=== PATIENT | female | born 1940 | race Caucasian/White ===

== ENCOUNTER 2022-09-22 11:48 | Inpatient (IN) | payer MEDICARE ==
[2022-09-22] MEDS ORDERED: methylPREDNISolone SOD SUCCI 125 MG/2 ML VIAL IV STA (12:04)
[2022-09-22] MEDS ORDERED: IPRATROPIUM-ALBUTEROL 3 ML NEB INHALATION STA (12:04)
--- NOTE | 2022-09-22 12:07 | ED ---
General Adult HPI - General Chief complaint: Shortness of Breath Stated complaint: LEVY Time Seen by Provider: 09/22/22 11:49 Source: patient, EMS, RN notes reviewed Mode of arrival: EMS Limitations: no limitations - History of Present Illness Initial comments: Patient is a pleasant 81-year-old female presenting to the emergency department with difficulty in breathing. Patient has had cough for the past one week. Patient does have occasional yellow sputum. No fever. Patient does have history of similar symptoms previously associated with COPD. - Related Data Allergies Allergy/AdvReac Type Severity Reaction Status Date / Time No Known Allergies Allergy Verified 09/22/22 12:01 Review of Systems ROS Statement: Those systems with pertinent positive or pertinent negative responses have been documented in the HPI. ROS Other: All systems not noted in ROS Statement are negative. Constitutional: Denies: fever Eyes: Denies: eye pain ENT: Denies: ear pain Respiratory: Reports: as per HPI, cough, dyspnea Cardiovascular: Denies: chest pain Endocrine: Denies: fatigue Gastrointestinal: Denies: abdominal pain Genitourinary: Denies: dysuria Musculoskeletal: Denies: back pain Skin: Denies: rash Neurological: Denies: weakness Past Medical History Past Medical History: COPD, Hyperlipidemia, Hypertension Past Surgical History: Appendectomy, Tubal Ligation Smoking Status: Current every day smoker Past Alcohol Use History: Daily Past Drug Use History: None Reported General Exam Limitations: no limitations General appearance: alert, in no apparent distress Head exam: Present: normocephalic Eye exam: Present: normal appearance Neck exam: Present: normal inspection Respiratory exam: Present: wheezes Cardiovascular Exam: Present: regular rate, normal rhythm GI/Abdominal exam: Present: soft. Absent: tenderness Extremities exam: Present: normal inspection. Absent: pedal edema, calf tenderness Neurological exam: Present: alert Psychiatric exam: Present: normal affect, normal mood Skin exam: Present: normal color Course Vital Signs 09/22/22 09/22/22 09/22/22 11:49 11:57 12:18 Temperature 98.2 F Pulse Rate 93 92 Respiratory 24 Rate Blood Pressure 107/71 O2 Sat by Pulse 96 Oximetry 09/22/22 12:28 Temperature Pulse Rate 94 Respiratory Rate Blood Pressure O2 Sat by Pulse Oximetry - Reevaluation(s) Reevaluation #1: 09/22/22 13:37 Sepsis criteria met diagnosed at 1337. Lactic acid resulted. Blood cultures and IV antibiotics will be ordered. EKG Findings - EKG Results: EKG: interpreted by ERMD (sex rhythm with a rate of 95. Nonspecific T waves.), normal axis, normal QRS Medical Decision Making - Medical Decision Making Patient reevaluated and still feels somewhat short of breath. Pulse ox 93% on oxygen. Patient updated on results and plan. Dr. Romero has been paged for admission covering Dr. Zavala - Lab Data Result diagrams: 09/22/22 12:17 09/22/22 12:17 Lab Results 09/22/22 09/22/22 09/22/22 Range/Units 12:17 12:17 12:17 WBC 11.3 H (3.8-10.6) k/uL RBC 3.81 (3.80-5.40) m/uL Hgb 12.4 (11.4-16.0) gm/dL Hct 36.0 (34.0-46.0) % MCV 94.7 (80.0-100.0) fL MCH 32.6 (25.0-35.0) pg MCHC 34.4 (31.0-37.0) g/dL RDW 13.1 (11.5-15.5) % Plt Count 394 (150-450) k/uL MPV 8.3 Neutrophils % (Manual) 73 % Band Neuts % (Manual) 2 % Lymphocytes % (Manual) 14 % Monocytes % (Manual) 10 % Eosinophils % (Manual) 1 % Neutrophils # (Manual) 8.40 H (1.3-7.7) k/uL Lymphocytes # (Manual) 1.58 (1.0-4.8) k/uL Monocytes # (Manual) 1.13 H (0-1.0) k/uL Eosinophils # (Manual) 0.11 (0-0.7) k/uL Nucleated RBCs 0 (0-0) /100 WBC Manual Slide Review Performed Toxic Granulation Present RBC Morphology Normal Sodium 132 L (137-145) mmol/L Potassium 4.1 (3.5-5.1) mmol/L Chloride 98 (98-107) mmol/L Carbon Dioxide 28 (22-30) mmol/L Anion Gap 6 mmol/L BUN 13 (7-17) mg/dL Creatinine 0.54 (0.52-1.04) mg/dL Est GFR (CKD-EPI)AfAm >90 (>60 ml/min/1.73 sqM) Est GFR (CKD-EPI)NonAf >90 (>60 ml/min/1.73 sqM) Glucose 115 H (74-99) mg/dL Plasma Lactic Acid Rayshawn 1.3 (0.7-2.0) mmol/L Calcium 8.6 (8.4-10.2) mg/dL Total Bilirubin 0.5 (0.2-1.3) mg/dL AST 27 (14-36) U/L ALT 18 (4-34) U/L Alkaline Phosphatase 112 (38-126) U/L Total Protein 5.7 L (6.3-8.2) g/dL Albumin 3.0 L (3.5-5.0) g/dL Influenza Type A (PCR) (Not Detectd) Influenza Type B (PCR) (Not Detectd) RSV (PCR) (Not Detectd) SARS-CoV-2 (PCR) (Not Detectd) 09/22/22 Range/Units 12:17 WBC (3.8-10.6) k/uL RBC (3.80-5.40) m/uL Hgb (11.4-16.0) gm/dL Hct (34.0-46.0) % MCV (80.0-100.0) fL MCH (25.0-35.0) pg MCHC (31.0-37.0) g/dL RDW (11.5-15.5) % Plt Count (150-450) k/uL MPV Neutrophils % (Manual) % Band Neuts % (Manual) % Lymphocytes % (Manual) % Monocytes % (Manual) % Eosinophils % (Manual) % Neutrophils # (Manual) (1.3-7.7) k/uL Lymphocytes # (Manual) (1.0-4.8) k/uL Monocytes # (Manual) (0-1.0) k/uL Eosinophils # (Manual) (0-0.7) k/uL Nucleated RBCs (0-0) /100 WBC Manual Slide Review Toxic Granulation RBC Morphology Sodium (137-145) mmol/L Potassium (3.5-5.1) mmol/L Chloride (98-107) mmol/L Carbon Dioxide (22-30) mmol/L Anion Gap mmol/L BUN (7-17) mg/dL Creatinine (0.52-1.04) mg/dL Est GFR (CKD-EPI)AfAm (>60 ml/min/1.73 sqM) Est GFR (CKD-EPI)NonAf (>60 ml/min/1.73 sqM) Glucose (74-99) mg/dL Plasma Lactic Acid Rayshawn (0.7-2.0) mmol/L Calcium (8.4-10.2) mg/dL Total Bilirubin (0.2-1.3) mg/dL AST (14-36) U/L ALT (4-34) U/L Alkaline Phosphatase (38-126) U/L Total Protein (6.3-8.2) g/dL Albumin (3.5-5.0) g/dL Influenza Type A (PCR) Not Detected (Not Detectd) Influenza Type B (PCR) Not Detected (Not Detectd) RSV (PCR) Not Detected (Not Detectd) SARS-CoV-2 (PCR) Not Detected (Not Detectd) - Radiology Data Interpreted by me: Chest x-ray shows increased interstitial densities with developing infiltrate bilateral bases, more so on the right Critical Care Time Critical Care Time: Yes Total Critical Care Time: 32 Disposition Clinical Impression: Pneumonia, Acute exacerbation of chronic obstructive pulmonary disease, Sepsis Disposition: ADMITTED IP TO THIS HOSP Is patient prescribed a controlled substance at d/c from ED?: No Referrals: Nonstaff,Physician [Primary Care Provider] - 1-2 days Time of Disposition: 13:37
[2022-09-22 12:40] LABS: ALT 18 U/L (4-34); AST 27 U/L (14-36); African American GFR (CKD) >90 (>60 ml/min/1.73 sqM); Alkaline Phosphatase 112 U/L (38-126); Anion Gap 6 mmol/L; Blood Urea Nitrogen 13 mg/dL (7-17); Calcium 8.6 mg/dL (8.4-10.2); Carbon Dioxide 28 mmol/L (22-30); Chloride 98 mmol/L (98-107); Glucose 115 mg/dL (74-99); Non-African American GFR(CKD) >90 (>60 ml/min/1.73 sqM); Potassium 4.1 mmol/L (3.5-5.1); Sodium 132 mmol/L (137-145); Total Bilirubin 0.5 mg/dL (0.2-1.3); Total Protein 5.7 g/dL (6.3-8.2)
[2022-09-22 12:48] LABS: HGB 12.4 gm/dL (11.4-16.0); MCH 32.6 pg (25.0-35.0); MCHC 34.4 g/dL (31.0-37.0); MCV 94.7 fL (80.0-100.0); Mean Platelet Volume 8.3; Platelet Count 394 k/uL (150-450); RBC 3.81 m/uL (3.80-5.40); RDW 13.1 % (11.5-15.5); WBC 11.3 k/uL (3.8-10.6)
[2022-09-22 13:12] LABS: Band Neutrophils % 2 %; Eosinophils # (M) 0.11 k/uL (0-0.7); Lymphocytes # (M) 1.58 k/uL (1.0-4.8); Monocytes # (M) 1.13 k/uL (0-1.0); Neutrophils % (M) 73 %; Nucleated Red Blood Cells 0 /100 WBC (0-0); Total Cells Counted 100
[2022-09-22 13:15] LABS: RBC Morphology Normal; Toxic Granulation Present
--- NOTE | 2022-09-22 13:17 | XR ---
EXAMINATION TYPE: XR chest 2V DATE OF EXAM: 09/22/2022 COMPARISON: None HISTORY: 81-year-old female shortness of breath, difficulty in breathing TECHNIQUE: PA and lateral views FINDINGS: Heart mildly enlarged. Mild hyperinflation. Diffuse interstitial opacity and patchy densit y right greater than left lung bases. No sizable pleural effusion on the lateral view. Trace effusion s may be present. IMPRESSION: Cardiomegaly and COPD. Diffuse interstitial changes and developing patchy opacities, right greater th an left. Correlate for CHF with developing interstitial pulmonary edema. Underlying pneumonia can be excluded on a clinical basis.
[2022-09-22] MEDS ORDERED: PNEUMONIA PROTOCOL UTILIZED 1 EACH MISC PO PRN (13:38)
[2022-09-22] MEDS ORDERED: AZITHROMYCIN 500 MG in SODIUM CHLORIDE 0.9% 250 ML IVPB STA (13:38)
[2022-09-22] MEDS ORDERED: IPRATROPIUM-ALBUTEROL 3 ML NEB INHALATION PRN (13:38)
[2022-09-22] MEDS ORDERED: PIPERACILLIN-TAZOBACTAM 3.375 GM in SODIUM CHLORIDE 0.9% 100 ML IVPB STA (13:45)
--- NOTE | 2022-09-22 14:49 | P.CNPUL ---
History of Present Illness Consult date: 09/22/22 Requesting physician: Grace Romero Reason for consult: dyspnea, COPD, abnormal CXR/CT Chief complaint: Shortness of breath, cough, congestion History of present illness: This is a pleasant 81-year-old female patient who has a history of chronic obstructive pulmonary disease maintained on Anoro, chronic and ongoing tobacco dependence, hypertension, hyperlipidemia. She has a 1 week history of i ncreasing shortness of breath, poor appetite due to food tasting poorly, dyspnea on exertion, cough and congestion. She is vaccinated and boosted against the saunders virus. No recent sick contacts. No history of recurrent pneumonias. She presented here to the emergency room today. Chest x-ray reveals evidence of cardiomegaly and COPD. There is diffuse interstitial changes and developing patchy opacities right greater than left. Possible underlying congestive heart failure versus pneumonia. White count 11.3. Hemoglobin 12.4. Platelets 394. Sodium 132. Potassium 4.1. Chloride 98. BUN 13. Creatinine 0.54. Glucose 1:15. ProBNP 630. Influenza screen negative. RSV screen negative. COVID-19 screen negative. She is seen in the emergency department. Currently sitting up in a stretcher. Awake and alert in no acute distress. She's afebrile. Hemodynamically stable. Maintain O2 saturations in the 90s on 4 L/m per nasal cannula. She does have a loose nonproductive cough. She's been initiated on bronchodilators, antibiotics in the form of Zosyn, normal saline at 100 ML's per hour. Review of Systems REVIEW OF SYSTEMS: CONSTITUTIONAL: Denies any recent significant weight loss or weight gain. EYES: Denies change in vision. EARS, NOSE, MOUTH, THROAT: Denies headaches, denies sore throat. CARDIOVASCULAR: Denies chest pain, palpitations or syncopal episodes. RESPIRATORY: Positive for shortness of breath, cough, congestion no hemoptysis. GASTROINTESTINAL: Positive for poor appetite due to food tasting bad, denies abdominal pain GENITOURINARY: Denies hematuria, denies infections. MUSKULOSKELETAL: Denies pain, denies swelling. INTEGUMENTARY: Denies rash, denies eczema. NEUROLOGICAL: Denies recent memory loss, no recent seizure activity. PSYCHIATRIC: Denies anxiety, denies depression. HEMATOLOGIC/LYMPHATIC: Denies anemia, denies enlarged lymph nodes. Past Medical History Past Medical History: COPD, Hyperlipidemia, Hypertension Past Surgical History: Appendectomy, Tubal Ligation Smoking Status: Current every day smoker Past Alcohol Use History: Daily Past Drug Use History: None Reported Medications and Allergies Home Medications Medication Instructions Recorded Confirmed Type Atorvastatin [Lipitor] 40 mg PO DAILY PRN 09/22/22 09/22/22 History Oxybutynin Chloride [Ditropan XL] 10 mg PO DAILY PRN 09/22/22 09/22/22 History Umeclidinium Brm/Vilanterol Tr 1 puff INHALATION RT-HS 09/22/22 09/22/22 History [Anoro Ellipta 62.5-25 Mcg INH] amLODIPine BES/OLMESARTAN MED 1 tab PO DAILY PRN 09/22/22 09/22/22 History [amLODIPine BES/OLMESARTAN MED 5-20 mg] Allergies Allergy/AdvReac Type Severity Reaction Status Date / Time No Known Allergies Allergy Verified 09/22/22 14:25 Physical Exam Vitals: Vital Signs Temp Pulse Resp BP Pulse Ox 09/22/22 12:28 94 09/22/22 12:18 92 09/22/22 11:57 24 09/22/22 11:49 98.2 F 93 24 107/71 96 Intake and Output 09/21/22 09/22/22 09/22/22 22:59 06:59 14:59 Other: Weight 54.431 kg GENERAL EXAM: Alert, pleasant 81-year-old female, on 4 L nasal cannula, comfortable in no apparent distress. HEAD: Normocephalic. EYES: Normal reaction of pupils, equal size. NOSE: Clear with pink turbinates. THROAT: No erythema or exudates. NECK: No masses, no JVD. CHEST: No chest wall deformity. LUNGS: Equal air entry with crackles in the bilateral bases. CVS: S1 and S2 normal with no audible murmur, regular rhythm. ABDOMEN: No hepatosplenomegaly, normal bowel sounds, no guarding or rigidity. SPINE: No scoliosis or deformity SKIN: No rashes CENTRAL NERVOUS SYSTEM: No focal deficits, tone is normal in all 4 extremities. EXTREMITIES: There is no peripheral edema. No clubbing, no cyanosis. Peripheral pulses are intact. Results - Laboratory Findings CBC and BMP: 09/22/22 12:17 09/22/22 12:17 Abnormal lab findings: Abnormal Labs 09/22/22 09/22/22 12:17 12:17 WBC 11.3 H Neutrophils # (Manual) 8.40 H Monocytes # (Manual) 1.13 H Sodium 132 L Glucose 115 H Total Protein 5.7 L Albumin 3.0 L - Diagnostic Findings Chest x-ray: image reviewed Assessment and Plan Assessment: Acute hypoxemic respiratory failure secondary to suspected systolic versus diastolic congestive heart failure, possible community-acquired pneumonia. BNP 630. Pro-calcitonin pending. Currently on Zosyn Acute exacerbation of chronic obstructive pulmonary disease secondary to above Chronic and ongoing tobacco dependence of greater than 50 years Hypertension Hyperlipidemia Plan: The patient was seen and evaluated Chest x-ray, labs and medications reviewed Check a pro-calcitonin, continue Zosyn for now Sputum culture pending Blood cultures pending Give Lasix 40 mg IVP 1 Decrease IV fluids to KVO Follow-up chest x-ray in a.m. Titrate the FiO2 as tolerated We will continue to follow and make further recommendations based on her clinical status I have personally seen and examined the patient, performed the documentation and the assessment and plan as written. Number of minutes spent on the visit: 20.
[2022-09-22] MEDS ORDERED: FUROSEMIDE 10 MG/ML 4 ML VIAL IV STA (14:50)
[2022-09-22] MEDS: SODIUM CHLORIDE 0.9% 1,000 ML IV SCH (15:18)
[2022-09-22] MEDS ORDERED: OXYBUTYNIN 10 MG TAB.ER.24 PO PRN (15:45)
[2022-09-22] MEDS ORDERED: ATORVASTATIN 40 MG TAB PO PRN (15:45)
[2022-09-22] MEDS ORDERED: HYDROcodone/APAP 5-325MG 1 EACH TAB PO PRN (15:47)
[2022-09-22] MEDS ORDERED: ALPRAZolam 0.25 MG TAB PO PRN (15:47)
[2022-09-22] MEDS ORDERED: LOSARTAN 50 MG TAB PO PRN (15:54)
[2022-09-22] MEDS ORDERED: amLODIPine 5 MG TAB PO PRN (15:54)
[2022-09-22] MEDS: IPRATROPIUM-ALBUTEROL 3 ML NEB INHALATION SCH ×2 (16:20→20:09)
[2022-09-22] MEDS: BUDESONIDE 1 MG/2 ML NEBU INHALATION SCH (20:09)
[2022-09-22] MEDS: FORMOTEROL FUMARATE 20 MCG/2 ML NEBU INHALATION SCH (20:09)
[2022-09-22] MEDS: HEPARIN SODIUM,PORCINE/PF 5,000 UNIT/0.5 ML SYRINGE SQ SCH (20:21)
[2022-09-22] MEDS: methylPREDNISolone SOD SUCCI 125 MG/2 ML VIAL IV SCH (20:21)
--- NOTE | 2022-09-22 21:31 | P.CONS ---
History of Present Illness - Reason for Consult Consult date: 09/22/22 Pneumonia Requesting physician: Grace Romero - Chief Complaint Increasing shortness of breath x few days - History of Present Illness Patient is a 81-year-old female with a past medical history significant for COPD hypertension hyperlipidemia presenting to ER for evaluation of increasing shortness of breath that apparently has been getting worse for the last 1 week patient denies having any chest pain the patient also have a cough moderate in intensity with occasional sputum production. Denies having any hemoptysis or pleuritic chest pain, patient has been complaining of decreased appetite and some nausea but no vomiting no choking on the food no abdominal pain or any diarrhea with these symptoms the patient was evaluated by the ER physician on arrival to the patient was afebrile patient did have mildly elevated white count of 11.3 with a left shift kidney function has been normal patient did have a negative influenza RSV and saunders virus PCR, the patient did have a chest x-ray with evidence of cardiomegaly and diffuse interstitial changes and patchy opacity right greater than the left patient was started on Zosyn and admitted to the hospital infectious disease was consulted for further management of antibiotic therapy Review of Systems Positive point has been mentioned in the HPI rest of the systems are negative Past Medical History Past Medical History: COPD, Hyperlipidemia, Hypertension Past Surgical History: Appendectomy, Tubal Ligation Smoking Status: Current every day smoker Past Alcohol Use History: Daily Past Drug Use History: None Reported - Past Family History Father History Unknown: Yes Medications and Allergies Home Medications Medication Instructions Recorded Confirmed Type Atorvastatin [Lipitor] 40 mg PO DAILY PRN 09/22/22 09/22/22 History Oxybutynin Chloride [Ditropan XL] 10 mg PO DAILY PRN 09/22/22 09/22/22 History Umeclidinium Brm/Vilanterol Tr 1 puff INHALATION RT-HS 09/22/22 09/22/22 History [Anoro Ellipta 62.5-25 Mcg INH] amLODIPine BES/OLMESARTAN MED 1 tab PO DAILY PRN 09/22/22 09/22/22 History [amLODIPine BES/OLMESARTAN MED 5-20 mg] Furosemide [Lasix] 20 mg PO BID 30 Days #60 tab 09/26/22 Rx Ipratropium-Albuterol Nebulize 3 ml INHALATION RT-Q4H PRN each 09/26/22 Rx [Duoneb 0.5 mg-3 mg/3 ml Soln] Ipratropium-Albuterol Nebulize 3 ml INHALATION RT-QID 30 Days 09/26/22 Rx [Duoneb 0.5 mg-3 mg/3 ml Soln] #120 each Nicotine 14Mg/24Hr Patch [Habitrol] 1 patch TRANSDERM DAILY #30 patch 09/26/22 Rx cefUROXime axetiL [Ceftin] 500 mg PO BID 5 Days #10 tab 09/26/22 Rx predniSONE 10 mg PO DIRECTED #30 tab 09/26/22 Rx Allergies Allergy/AdvReac Type Severity Reaction Status Date / Time No Known Allergies Allergy Verified 09/22/22 14:25 Physical Exam Vitals: Vital Signs Temp Pulse Resp BP Pulse Ox FiO2 09/22/22 20:37 91 29 H 110/74 98 09/22/22 20:28 93 09/22/22 20:21 92 09/22/22 20:20 92 09/22/22 20:09 90 98 50 09/22/22 18:45 78 24 128/72 90 L 09/22/22 16:34 95 09/22/22 16:23 92 L 09/22/22 16:20 94 09/22/22 15:45 96 16 129/80 99 09/22/22 12:28 94 09/22/22 12:18 92 09/22/22 11:57 93 20 107/71 94 L 09/22/22 11:49 98.2 F 93 24 107/71 96 Intake and Output 09/22/22 09/22/22 09/22/22 06:59 14:59 22:59 Other: Weight 54.431 kg GENERAL DESCRIPTION: Elderly female lying in bed, no distress. No tachypnea or accessory muscle of respiration use. HEENT: Shows Pallor , no scleral icterus. Oral mucous membrane is dry. No pha ryngeal erythema or thrush NECK: Trachea central, no thyromegaly. LUNGS: Unlabored breathing. Coarse breath sounds bilaterally. HEART: S1, S2, regular rate and rhythm. No loud murmur ABDOMEN: Soft, no tenderness , guarding or rigidity, no organomegaly EXTREMITIES: No edema of feet. SKIN: No rash, no masses palpable. NEUROLOGICAL: The patient is awake, alert, oriented x3, mood and affect normal. Results CBC & Chem 7: 09/25/22 06:30 09/25/22 06:30 Labs: Abnormal Lab Results - Last 24 Hours (Table) 09/22/22 09/22/22 Range/Units 12:17 12:17 WBC 11.3 H (3.8-10.6) k/uL Neutrophils # (Manual) 8.40 H (1.3-7.7) k/uL Monocytes # (Manual) 1.13 H (0-1.0) k/uL Sodium 132 L (137-145) mmol/L Glucose 115 H (74-99) mg/dL Total Protein 5.7 L (6.3-8.2) g/dL Albumin 3.0 L (3.5-5.0) g/dL Assessment and Plan (1) Pneumonia Current Visit: Yes Status: Acute Code(s): J18.9 - PNEUMONIA, UNSPECIFIED ORGANISM SNOMED Code(s): 320539912 Plan: 1patient is in the hospital with increasing shortness of breath which is likely multifactorial in this patient who do have a history of COPD patient did have evidence of patchy opacities on the right side concerning for possible pneumonia with COPD exacerbation. 2we will obtain sputum for Gram stain and culture 3check a CRP and a pro-calcitonin level 4continue with the Zosyn 3.375 g every 8 hours We will follow on clinical condition and cultures to further adjust medication if needed Thank you for this consultation will follow this patient with you Time with Patient: Greater than 30
--- NOTE | 2022-09-23 02:42 | HP ---
HISTORY AND PHYSICAL CHIEF COMPLAINT: Shortness of breath. HISTORY OF PRESENT ILLNESS: This is a 81-year-old woman with a past medical history of multiple medical issues of COPD with shortness of breath for the past several weeks. The patient had cough and sputum. Because of lack of improvement, the patient came to [facility]. Patient was hypoxic, patient had bilateral infiltrates, possible pneumonia. The patient was admitted for further evaluation and treatment. The patient has taken COVID and flu vaccinations and COVID, flu, and RSV testing is negative at this time. There is no history of any fever, rigors, or chills. PAST MEDICAL HISTORY: Reviewed include COPD, rest of the history and rest of the chart is also reviewed. HOME MEDICATIONS: Ditropan XL, dose and rest of the medications are reviewed. ALLERGIES: None. FAMILY HISTORY: No history of heart disease or strokes in the family. SOCIAL HISTORY: Current smoking. REVIEW OF SYSTEMS: A 14-point review is negative except as mentioned earlier. PHYSICAL EXAMINATION: VITAL SIGNS: Pulse is 93, blood pressure 107/70, and respirations 24. HEENT: Conjunctivae normal. NECK: Accessory muscles with respiration acting. CARDIOVASCULAR: S1, S2. RESPIRATIONS: Bilateral scattered rhonchi, expiratory wheezing and rhonchi heard. ABDOMEN: Soft, nontender. No masses palpable. LEGS: No edema, no swelling. NERVOUS SYSTEM: No focal deficits. SKIN: No ulcer, rash, bleeding. JOINTS: No active deforming arthropathy. LABS: WBC 11.3, sodium 132. ASSESSMENT: 1. Chronic obstructive pulmonary disease. 2. Acute exacerbation of bilateral pneumonia, possibly gram-negative. 3. Rule out congestive heart failure. 4. Hyponatremia. 5. Continued ongoing nicotine dependence. 6. Hypertension. 7. Hyperlipidemia. 8. Multiple medical issues. 9. Acute hypoxic respiratory failure. RECOMMENDATIONS: This 81-year-old woman presented with multiple complex medical issues. We will monitor the patient closely. We will initiate empiric antibiotics and also intensive bronchodilators, pulmonology, infectious disease evaluation. Monitor fluid/electrolyte balance closely. Prognosis guarded because of multiple complex medical conditions. The patient will start on IV Zosyn and as mentioned earlier COVID-19 is negative at this time. See orders for details. Home medications will be continued. DVT prophylaxis. Incentive spirometry. Proton pump inhibitors. Further recommendations to follow. MMODL / IJN: [id number] /
[2022-09-23] MEDS: methylPREDNISolone SOD SUCCI 125 MG/2 ML VIAL IV SCH ×5 (04:12→23:12)
[2022-09-23] MEDS: PIPERACILLIN-TAZOBACTAM 3.375 GM in SODIUM CHLORIDE 0.9% 100 ML IVPB SCH ×4 (04:12→23:27)
[2022-09-23] MEDS: BUDESONIDE 1 MG/2 ML NEBU INHALATION SCH ×2 (07:58→19:41)
[2022-09-23] MEDS: IPRATROPIUM-ALBUTEROL 3 ML NEB INHALATION SCH ×4 (07:58→19:41)
[2022-09-23] MEDS: FORMOTEROL FUMARATE 20 MCG/2 ML NEBU INHALATION SCH ×2 (07:58→19:41)
[2022-09-23] MEDS ORDERED: AZITHROMYCIN 500 MG TAB PO SCH (09:00)
[2022-09-23] MEDS: HEPARIN SODIUM,PORCINE/PF 5,000 UNIT/0.5 ML SYRINGE SQ SCH ×2 (09:42→23:12)
[2022-09-23] MEDS: NICOTINE 14MG/24HR PATCH TRANSDERM SCH (09:42)
[2022-09-23] MEDS: PANTOPRAZOLE 40 MG TABLET PO SCH (09:42)
--- NOTE | 2022-09-23 09:58 | XR ---
EXAMINATION TYPE: XR chest 2V DATE OF EXAM: 09/23/2022 COMPARISON: 09/22/2022 HISTORY: 81-year-old female pneumonia TECHNIQUE: AP and lateral views FINDINGS: Heart mildly enlarged. Ongoing right greater than left bibasilar opacities. Increasing opacity periph obinna of the right mid to lower lung. Diffuse interstitial density persists. IMPRESSION: COPD with mild cardiomegaly. Given interstitial changes, correlate for superimposed atypical pneumoni as versus pulmonary vascular congestion. Patchy right greater than left basilar opacities slightly in creasing on the right.
[2022-09-23] MEDS ORDERED: DEXTROSE 50% SYRINGE 50 ML IVP PRN ×2 (11:02)
[2022-09-23 11:36] LABS: HCT 34.2 % (37.2-46.3); HGB 11.8 g/dL (12.0-15.0); MCH 32.2 pg (27.0-32.0); MCHC 34.5 g/dL (32.0-37.0); MCV 93.2 fL (80.0-97.0); Mean Platelet Volume 8.9 fL (9.5-12.2); NRBC Per 100 WBC 0 /100 WBCS (0.0-0.0); Platelet Count 430 X 10*3/uL (140-440); RBC 3.67 X 10*6/uL (4.10-5.20); RDW 13.7 % (11.5-14.5); WBC 11.88 X 10*3/uL (4.50-10.00)
[2022-09-23 11:55] LABS: BUN/Creat Ratio 26.94 Ratio (12.00-20.00); Blood Urea Nitrogen 19.1 mg/dL (9.0-27.0); C Reactive Protein 17.4 mg/dL (0.00-0.80); Calcium 9.4 mg/dL (8.7-10.3); Carbon Dioxide 26.4 mmol/L (20.0-27.5); Non-African American GFR(CKD) 81.1 (60.0-200.0); Potassium 4.2 mmol/L (3.5-5.5)
[2022-09-23 12:08] LABS: Basophils # (A) 0.03 X 10*3/uL (0.00-0.10); Basophils % (A) 0.3 %; Eosinophils # (A) 0 X 10*3/uL (0.04-0.35); Eosinophils % (A) 0 %; Immature Grans, Automated 0.8 %; Lymphocytes # (A) 1.06 X 10*3/uL (0.90-5.00); Lymphocytes % (A) 8.9 %; Monocytes # (A) 0.37 X 10*3/uL (0.20-1.00); Monocytes % (A) 3.1 %; Neutrophils # (A) 10.33 X 10*3/uL (1.80-7.70); Neutrophils % (A) 86.9 %
[2022-09-23 12:19] LABS: Glucose,Whole Blood 187 mg/dL (70-110)
[2022-09-23] MEDS ORDERED: VANCOMYCIN IV PER PHARMACY 1 EACH MISC MISCELLANE PRN (12:22)
[2022-09-23] MEDS ORDERED: VANCOMYCIN 1,000 MG in SODIUM CHLORIDE 0.9% 250 ML IVPB SCH (13:00)
[2022-09-23] MEDS: INSULIN ASPART (NovoLOG) 100 UNIT/ML VIAL SQ SCH ×3 (13:14→22:22)
[2022-09-23] MEDS: SODIUM CHLORIDE 0.9% 1,000 ML IV SCH (13:14)
--- NOTE | 2022-09-23 13:38 | P.PN ---
Subjective Progress Note Date: 09/23/22 Principal diagnosis: Acute hypoxic respiratory failure secondary to acute exacerbation of COPD and possible right lower lobe community-acquired pneumonia This is a pleasant 81-year-old female patient who has a history of chronic obstructive pulmonary disease maintained on Anoro, chronic and ongoing tobacco dependence, hypertension, hyperlipidemia. She has a 1 week history of increasing shortness of breath, poor appetite due to food tasting poorly, dyspnea on exertion, cough and congestion. She is vaccinated and boosted against the saunders virus. No recent sick contacts. No history of recurrent pneumonias. She presented here to the emergency room today. Chest x-ray r eveals evidence of cardiomegaly and COPD. There is diffuse interstitial changes and developing patchy opacities right greater than left. Possible underlying congestive heart failure versus pneumonia. White count 11.3. Hemoglobin 12.4. Platelets 394. Sodium 132. Potassium 4.1. Chloride 98. BUN 13. Creatinine 0.54. Glucose 1:15. ProBNP 630. Influenza screen negative. RSV screen negative. COVID-19 screen negative. She is seen in the emergency department. Currently sitting up in a stretcher. Awake and alert in no acute distress. She's afebrile. Hemodynamically stable. Maintain O2 saturations in the 90s on 4 L/m per nasal cannula. She does have a loose nonproductive cough. She's been initiated on bronchodilators, antibiotics in the form of Zosyn, normal saline at 100 ML's per hour. Reevaluated today on 09/23/22, patient is feeling better, however she remains in the ER waiting for a bed on the floor. Remains on oxygen presently on 15 L high flow nasal cannula, patient is clinically feeling better, her O2 sats is 96%. Hemoglobin is 11.8 WBC count is also 11.8 chest x-ray showed COPD, cardiomegaly, interstitial changes difficult to tell how much of it is really related to vascular congestion and how much of that is really true pneumonia. She has patchy right greater than left basilar opacities, again I still suspect there is a component of heart failure her pro calcitonin level is slightly elevated, underlying pneumonia is not entirely ruled out patient had negative screening for influenza A and influenza B RSV and COVID-19 infection. Patient remains emp irically on antibiotics, she is also on diuretics which I have started today. She did receive a dose of Lasix yesterday. Objective - Vital Signs Vital signs: Vital Signs Temp 98.2 F 09/22/22 11:49 Pulse 104 H 09/23/22 13:21 Resp 20 09/23/22 13:21 BP 100/67 09/23/22 13:21 Pulse Ox 96 09/23/22 13:21 FiO2 50 09/23/22 07:58 Intake & Output 09/22/22 09/23/22 09/23/22 18:59 06:59 18:59 Weight 54.431 kg - Exam GENERAL EXAM: 81-year-old female in no distress on high flow nasal cannula HEAD: Normocephalic. EYES: Normal reaction of pupils, equal size. NOSE: Clear with pink turbinates. THROAT: No erythema or exudates. NECK: No masses, no JVD. CHEST: No chest wall deformity. LUNGS: Crackles at the bases bilaterally right more so than left. CVS: S1 and S2 normal with no audible murmur, regular rhythm. ABDOMEN: No hepatosplenomegaly, normal bowel sounds, no guarding or rigidity. CENTRAL NERVOUS SYSTEM: Alert and oriented 3 no gross focal deficit EXTREMITIES: No clubbing edema or cyanosis. - Labs CBC & Chem 7: 09/23/22 07:22 09/23/22 07:22 Labs: Abnormal Lab Results - Last 24 Hours (Table) 09/22/22 09/23/22 09/23/22 Range/Units 12:17 07:22 07:22 WBC 11.88 H (4.50-10.00) X 10*3/uL RBC 3.67 L (4.10-5.20) X 10*6/uL Hgb 11.8 L (12.0-15.0) g/dL Hct 34.2 L (37.2-46.3) % MCH 32.2 H (27.0-32.0) pg MPV 8.9 L (9.5-12.2) fL Immature Gran # 0.09 H (0.00-0.04) X 10*3/uL Neutrophils # 10.33 H (1.80-7.70) X 10*3/uL Eosinophils # 0 L (0.04-0.35) X 10*3/uL BUN/Creatinine Ratio 26.94 H (12.00-20.00) Ratio Glucose 191 H (70-110) mg/dL POC Glucose (mg/dL) (70-110) mg/dL C-Reactive Protein 17.40 H (0.00-0.80) mg/dL Procalcitonin 0.15 H (0.02-0.09) ng/mL 09/23/22 Range/Units 12:18 WBC (4.50-10.00) X 10*3/uL RBC (4.10-5.20) X 10*6/uL Hgb (12.0-15.0) g/dL Hct (37.2-46.3) % MCH (27.0-32.0) pg MPV (9.5-12.2) fL Immature Gran # (0.00-0.04) X 10*3/uL Neutrophils # (1.80-7.70) X 10*3/uL Eosinophils # (0.04-0.35) X 10*3/uL BUN/Creatinine Ratio (12.00-20.00) Ratio Glucose (70-110) mg/dL POC Glucose (mg/dL) 187 H (70-110) mg/dL C-Reactive Protein (0.00-0.80) mg/dL Procalcitonin (0.02-0.09) ng/mL Microbiology - Last 24 Hours (Table) 09/22/22 15:10 Blood Culture Gram Stain - Preliminary Blood 09/22/22 14:55 Blood Culture Gram Stain - Preliminary Blood 09/22/22 15:10 Blood Culture - Final Blood Assessment and Plan Assessment: Acute hypoxemic respiratory failure secondary to acute exacerbation of COPD, and suspect acute systolic or possibly diastolic congestive heart failure echocardiogram is pending. Acute exacerbation of COPD Hyperlipidemia Benign essential hypertension Recommendation: Continue antibiotics as Zosyn Continue Lasix continue IV fluid at KVO Continue bronchodilators Awaiting cultures which were ordered so far are negative We'll continue to follow Time with Patient: Less than 30
[2022-09-23] MEDS: FUROSEMIDE 10 MG/ML 2 ML VIAL IV SCH ×2 (14:13→23:11)
--- NOTE | 2022-09-23 15:21 | P.PN ---
Subjective Progress Note Date: 09/23/22 Principal diagnosis: Possible pneumonia and positive blood culture Patient is a 81-year-old female with a past medical history significant for COPD hypertension hyperlipidemia presenting to ER for evaluation of increasing shortness of breath that apparently has been getting worse for the last 1 week before presentation hospital, patient chest x-ray with cardiomegaly and patchy right greater than left infiltrate concerning for possible pneumonia On today's evaluation that is 09/23/2022, the patient denies having any fever or any chills, the patient is currently breathing comfortably and is on a Ventimask patient denies having any chest pain no worsening cough or sputum production no abdominal pain or diarrhea Objective - Vital Signs Vital signs: Vital Signs Temp 98.2 F 09/22/22 11:49 Pulse 92 09/23/22 14:15 Resp 20 09/23/22 14:15 BP 99/66 09/23/22 14:15 Pulse Ox 96 09/23/22 14:15 FiO2 50 09/23/22 07:58 Intake & Output 09/22/22 09/23/22 09/23/22 18:59 06:59 18:59 Weight 54.431 kg - Exam GENERAL DESCRIPTION: An elderly female lying in bed in no distress RESPIRATORY SYSTEM: Unlabored breathing , decreased intensity of breath sounds, no wheeze HEART: S1 S2 regular rate and rhythm , ABDOMEN: Soft , no tenderness EXTREMITIES: No edema feet - Labs CBC & Chem 7: 09/23/22 07:22 09/23/22 07:22 Labs: Abnormal Lab Results - Last 24 Hours (Table) 09/22/22 09/23/22 09/23/22 Range/Units 12:17 07:22 07:22 WBC 11.88 H (4.50-10.00) X 10*3/uL RBC 3.67 L (4.10-5.20) X 10*6/uL Hgb 11.8 L (12.0-15.0) g/dL Hct 34.2 L (37.2-46.3) % MCH 32.2 H (27.0-32.0) pg MPV 8.9 L (9.5-12.2) fL Immature Gran # 0.09 H (0.00-0.04) X 10*3/uL Neutrophils # 10.33 H (1.80-7.70) X 10*3/uL Eosinophils # 0 L (0.04-0.35) X 10*3/uL BUN/Creatinine Ratio 26.94 H (12.00-20.00) Ratio Glucose 191 H (70-110) mg/dL POC Glucose (mg/dL) (70-110) mg/dL C-Reactive Protein 17.40 H (0.00-0.80) mg/dL Procalcitonin 0.15 H (0.02-0.09) ng/mL 09/23/22 Range/Units 12:18 WBC (4.50-10.00) X 10*3/uL RBC (4.10-5.20) X 10*6/uL Hgb (12.0-15.0) g/dL Hct (37.2-46.3) % MCH (27.0-32.0) pg MPV (9.5-12.2) fL Immature Gran # (0.00-0.04) X 10*3/uL Neutrophils # (1.80-7.70) X 10*3/uL Eosinophils # (0.04-0.35) X 10*3/uL BUN/Creatinine Ratio (12.00-20.00) Ratio Glucose (70-110) mg/dL POC Glucose (mg/dL) 187 H (70-110) mg/dL C-Reactive Protein (0.00-0.80) mg/dL Procalcitonin (0.02-0.09) ng/mL Microbiology - Last 24 Hours (Table) 09/22/22 14:55 Blood Culture Gram Stain - Preliminary Blood Blood Culture - Preliminary Staphylococcus epidermidis 09/22/22 15:10 Blood Culture Gram Stain - Preliminary Blood 09/22/22 15:10 Blood Culture - Final Blood Assessment and Plan (1) Pneumonia Current Visit: Yes Status: Acute Code(s): J18.9 - PNEUMONIA, UNSPECIFIED ORGANISM SNOMED Code(s): 502046042 Plan: 1patient is in the hospital with increasing shortness of breath which is likely multifactorial in this patient who do have a history of COPD patient did have evidence of patchy opacities on the right side concerning for possible pneumonia with COPD exacerbation. 2 sputum for Gram stain and culture has been collected currently pending 3patient did have elevated CRP and pro-calcitonin level mildly elevated at 0.15 4-patient also with a positive blood culture with gram-positive cocci the sensitivities pending, blood cultures will be repeated document clearance of bacteremia 5patient to continue with the Zosyn 3.375 g every 8 hours, we'll add vancomycin while waiting for a ID of this pathogen however if finalized and staph epi we'll discontinue it Time with Patient: Greater than 30
[2022-09-23 17:24] LABS: Glucose,Whole Blood 193 mg/dL (70-110)
[2022-09-23 20:08] LABS: Glucose,Whole Blood 107 mg/dL (70-110)
--- NOTE | 2022-09-23 23:19 | PN ---
PROGRESS NOTE DATE OF SERVICE: 09/23/2022 SUBJECTIVE: This is a 81-year-old woman who was admitted with COPD acute exacerbation, bilateral pneumonia, also had gram-positive cocci. The patient has less shortness of breath. The patient is on bronchodilators and antibiotics. Infectious Disease and Pulmonary are following the patient closely. PAST MEDICAL HISTORY: Reviewed. REVIEW OF SYSTEMS: Fourteen-point review is negative except as mentioned earlier. CURRENT MEDICATIONS: Reviewed include DuoNeb. Dose and rest of medication noted. PHYSICAL EXAMINATION: VITAL SIGNS: Pulse is 90, blood pressure 114/84, respirations 20. HEENT: Conjunctivae are normal. NECK: No jugular venous distention. CARDIOVASCULAR: S1 and S2. RESPIRATORY: Bilateral scattered rhonchi and crackles. ABDOMEN: Soft, nontender. LABS: Procalcitonin is elevated. ASSESSMENT: 1. Chronic obstructive pulmonary disease, acute exacerbation. 2. Bilateral pneumonia possibly gram-negative. 3. Gram-positive cocci in the blood with possible sepsis. 4. Rule out congestive heart failure. 5. Hyponatremia. 6. Continue ongoing nicotine dependence. 7. Elevated procalcitonin. 8. Hypertension. 9. Hyperlipidemia. 10.Acute hypoxic respiratory failure. 11.Multiple medical issues. RECOMMENDATIONS: Recommend to continue current bronchodilators. Continue the IV steroids. Continue the antibiotics. Follow the cultures. Repeat cultures. Closely follow up with Infectious Disease and Pulmonary. Guarded prognosis because of the multiple complex medical issues and further recommendations to follow. We will also monitor blood sugars. Also see orders for details. MMODL / IJN: [id number] / MTDD
[2022-09-24 04:20] LABS: Basophils # (A) 0.1 k/uL (0-0.2); Basophils % (A) 0 %; Eosinophils % (A) 0 %; HCT 35.2 % (34.0-46.0); HGB 12.1 gm/dL (11.4-16.0); Lymphocytes # (A) 0.5 k/uL (1.0-4.8); Lymphocytes % (A) 3 %; MCHC 34.3 g/dL (31.0-37.0); MCV 96.2 fL (80.0-100.0); Mean Platelet Volume 7.6; Monocytes # (A) 0.6 k/uL (0-1.0); Monocytes % (A) 3 %; Neutrophils % (A) 91 %; Platelet Count 506 k/uL (150-450); RBC 3.66 m/uL (3.80-5.40); RDW 12.8 % (11.5-15.5); WBC 17.6 k/uL (3.8-10.6)
[2022-09-24] MEDS: methylPREDNISolone SOD SUCCI 125 MG/2 ML VIAL IV SCH ×4 (06:08→23:09)
[2022-09-24] MEDS: PANTOPRAZOLE 40 MG TABLET PO SCH (06:09)
[2022-09-24 06:12] LABS: Glucose,Whole Blood 153 mg/dL (70-110)
[2022-09-24] MEDS: INSULIN ASPART (NovoLOG) 100 UNIT/ML VIAL SQ SCH ×4 (06:16→21:35)
[2022-09-24] MEDS: FORMOTEROL FUMARATE 20 MCG/2 ML NEBU INHALATION SCH ×2 (08:47→20:12)
[2022-09-24] MEDS: IPRATROPIUM-ALBUTEROL 3 ML NEB INHALATION SCH ×4 (08:47→20:12)
[2022-09-24] MEDS: BUDESONIDE 1 MG/2 ML NEBU INHALATION SCH ×2 (08:47→20:12)
[2022-09-24] MEDS: HEPARIN SODIUM,PORCINE/PF 5,000 UNIT/0.5 ML SYRINGE SQ SCH ×2 (09:23→21:32)
[2022-09-24] MEDS: FUROSEMIDE 10 MG/ML 2 ML VIAL IV SCH ×2 (09:23→21:33)
[2022-09-24] MEDS: PIPERACILLIN-TAZOBACTAM 3.375 GM in SODIUM CHLORIDE 0.9% 100 ML IVPB SCH ×3 (09:23→23:11)
[2022-09-24] MEDS: NICOTINE 14MG/24HR PATCH TRANSDERM SCH (09:24)
[2022-09-24 09:29] LABS: African American GFR (CKD) 81.3 (60.0-200.0); Albumin 3.2 g/dL (3.8-4.9); Albumin/Globulin Ratio 1.28 (1.60-3.17); Anion Gap 12.6 mmol/L (10.00-18.00); Blood Urea Nitrogen 21.6 mg/dL (9.0-27.0); Calcium 9.2 mg/dL (8.7-10.3); Carbon Dioxide 28.4 mmol/L (20.0-27.5); Globulin 2.5 g/dL (1.6-3.3); Non-African American GFR(CKD) 70.1 (60.0-200.0); Potassium 3.2 mmol/L (3.5-5.5); Total Bilirubin 0.3 mg/dL (0.30-1.20); Total Protein 5.7 g/dL (6.2-8.2)
[2022-09-24 10:52] LABS: Glucose,Whole Blood 224 mg/dL (70-110)
--- NOTE | 2022-09-24 11:30 | XR ---
EXAMINATION TYPE: XR chest 1V portable DATE OF EXAM: 09/24/2022 11:17 AM COMPARISON: Chest radiograph from one day prior. TECHNIQUE: XR chest 1V portable Portable AP radiograph of the chest. CLINICAL INDICATION:Female, 81 years old with history of shortness of breath; FINDINGS: Lungs/Pleura: There is improved aeration of the right lung base compared to 09/22/2022. Prominent int erstitial lung markings are seen scattered throughout the lungs. There is flattening of the diaphragm with increased lucency of the lungs. No evidence of pneumothorax, pleural effusion. Pulmonary vascularity: Unremarkable. Heart/mediastinum: Cardiomediastinal silhouette is unremarkable. Musculoskeletal: No acute osseous pathology. IMPRESSION: 1. Improved right basilar airspace opacities with persistent probable atelectasis. Correlation for a spiration is recommended given bilaterality. 2. COPD and coarse interstitial lung changes.
--- NOTE | 2022-09-24 13:38 | P.PN ---
Subjective Progress Note Date: 09/24/22 This is a pleasant 81-year-old female patient who has a history of chronic obstructive pulmonary disease maintained on Anoro, chronic and ongoing tobacco dependence, hypertension, hyperlipidemia. She has a 1 week history of increasing shortness of breath, poor appetite due to food tasting poorly, dyspnea on exertion, cough and congestion. She is vaccinated and boosted against the saunders virus. No recent sick contacts. No history of recurrent pneumonias. She presented here to the emergency room today. Chest x-ray reveals evidence of cardiomegaly and COPD. There is diffuse interstitial changes and developing patchy opacities right greater than left. Possible underlying congestive heart failure versus pneumonia. White count 11.3. Hemoglobin 12.4. Platelets 394. Sodium 132. Potassium 4.1. Chloride 98. BUN 13. Creatinine 0.54. Glucose 1:15. ProBNP 630. Influenza screen negative. RSV screen negative. COVID-19 screen negative. She is seen in the emergency department. Currently sitting up in a stretcher. Awake and alert in no acute distress. She's afebrile. Hemodynamically stable. Maintain O2 saturations in the 90s on 4 L/m per nasal cannula. She does have a loose nonproductive cough. She's been initiated on bronchodilators, antibiotics in the form of Zosyn, normal saline at 100 ML's per hour. Reevaluated today on 09/23/22, patient is feeling better, however she remains in the ER waiting for a bed on the floor. Remains on oxygen presently on 15 L high flow nasal cannula, patient is clinically feeling better, her O2 sats is 96%. Hemoglobin is 11.8 WBC count is also 11.8 chest x-ray showed COPD, cardiomegaly, interstitial changes difficult to tell how much of it is really related to vascular congestion and how much of that is really true pneumonia. She has patchy right greater than left basilar opacities, again I still suspect there is a component of heart failure her pro calcitonin level is slightly elevated, underlying pneumonia is not entirely ruled out patient had negative screening for influenza A and influenza B RSV and COVID-19 infection. Patient remains empirically on antibiotics, she is also on diuretics which I have started today. She did receive a dose of Lasix yesterday. The patient is seen today 09/24/2022 in follow-up on the regular medical floor. She is currently resting comfortably in bed. Awake and alert in no acute dis tress. She is utilizing a Ventimask at 35% FiO2. Her pro calcitonin was 0.15. Chest x-ray revealing some evidence of congestive heart failure. She is on Lasix 20 mg IV every 12 hours. No accurate I&O. Chest x-ray is revealing improving right basilar airspace opacities with persistent probable atelectasis. Evidence of COPD. NicoDerm patch in place. She is afebrile. Hemodynamically stable. Remains on antibiotics in the form of Zosyn. Objective - Vital Signs Vital signs: Vital Signs Temp 97.6 F 09/24/22 08:22 Pulse 88 09/24/22 12:45 Resp 18 09/24/22 08:22 BP 114/75 09/24/22 08:22 Pulse Ox 96 09/24/22 08:47 FiO2 35 09/24/22 08:47 Intake & Output 09/23/22 09/24/22 09/24/22 18:59 06:59 18:59 Intake Total 450 440 Output Total 3 Balance 447 440 Intake: Intake, IV Titration 100 440 Amount Piperacillin-Tazobactam 3 100 200 .375 gm In Sodium Chloride 0.9% 100 ml @ 25 mls/hr IVPB Q8HR [facility] Rx# :[id number] Sodium Chloride 0.9% 1, 240 000 ml @ 20 mls/hr IV . Q24H [facility] Rx#:[id number] Oral 350 Output: Stool 3 Other: # Voids 4 - Exam GENERAL EXAM: 81-year-old female in no distress on 35% FiO2 via Ventimask HEAD: Normocephalic. EYES: Normal reaction of pupils, equal size. NOSE: Clear with pink turbinates. THROAT: No erythema or exudates. NECK: No masses, no JVD. CHEST: No chest wall deformity. LUNGS: Crackles at the bases bilaterally right more so than left. CVS: S1 and S2 normal with no audible murmur, regular rhythm. ABDOMEN: No hepatosplenomegaly, normal bowel sounds, no guarding or rigidity. CENTRAL NERVOUS SYSTEM: Alert and oriented 3 no gross focal deficit EXTREMITIES: No clubbing edema or cyanosis. - Labs CBC & Chem 7: 09/24/22 03:34 09/24/22 03:34 Labs: Abnormal Lab Results - Last 24 Hours (Table) 09/23/22 09/23/22 09/24/22 Range/Units 07:22 17:23 03:34 WBC 17.6 H (3.8-10.6) k/uL RBC 3.66 L (3.80-5.40) m/uL Plt Count 506 H (150-450) k/uL Neutrophils # 16.0 H (1.3-7.7) k/uL Lymphocytes # 0.5 L (1.0-4.8) k/uL Potassium (3.5-5.5) mmol/L Carbon Dioxide (20.0-27.5) mmol/L BUN/Creatinine Ratio (12.00-20.00) Ratio Glucose (70-110) mg/dL POC Glucose (mg/dL) 193 H (70-110) mg/dL Hemoglobin A1c 6.2 H (0.0-6.0) % Total Protein (6.2-8.2) g/dL Albumin (3.8-4.9) g/dL Albumin/Globulin Ratio (1.60-3.17) g/dL 09/24/22 09/24/22 09/24/22 Range/Units 03:34 06:11 10:50 WBC (3.8-10.6) k/uL RBC (3.80-5.40) m/uL Plt Count (150-450) k/uL Neutrophils # (1.3-7.7) k/uL Lymphocytes # (1.0-4.8) k/uL Potassium 3.2 L (3.5-5.5) mmol/L Carbon Dioxide 28.4 H (20.0-27.5) mmol/L BUN/Creatinine Ratio 27.00 H (12.00-20.00) Ratio Glucose 172 H (70-110) mg/dL POC Glucose (mg/dL) 153 H 224 H (70-110) mg/dL Hemoglobin A1c (0.0-6.0) % Total Protein 5.7 L (6.2-8.2) g/dL Albumin 3.2 L (3.8-4.9) g/dL Albumin/Globulin Ratio 1.28 L (1.60-3.17) g/dL Microbiology - Last 24 Hours (Table) 09/22/22 15:10 Blood Culture Gram Stain - Preliminary Blood Blood Culture - Preliminary Coagulase Negative Staph 09/23/22 08:00 Gram Stain - Preliminary Sputum Sputum Culture - Preliminary 09/22/22 14:55 Blood Culture - Preliminary Blood No Growth after 24 hours 09/22/22 14:55 Blood Culture Gram Stain - Preliminary Blood Blood Culture - Preliminary Staphylococcus epidermidis 09/22/22 15:10 Blood Culture - Final Blood Assessment and Plan Assessment: Acute hypoxemic respiratory failure secondary to suspected systolic versus diastolic congestive heart failure, possible community-acquired pneumonia. BNP 630. Pro-calcitonin 0.15. Currently on Zosyn Acute exacerbation of chronic obstructive pulmonary disease secondary to above Chronic and ongoing tobacco dependence of greater than 50 years Hypertension Hyperlipidemia Plan: The patient was seen and evaluated Chest x-ray, labs and medications reviewed Continue the current treatment plan Titrate the FiO2 as tolerated Again educated regarding the importance of complete smoking cessation We will continue to follow I have personally seen and examined the patient, performed the documentation and the assessment and plan as written. Number of minutes spent on the visit: 10.
--- NOTE | 2022-09-24 16:21 | P.PN ---
Subjective Progress Note Date: 09/24/22 Principal diagnosis: Possible pneumonia and positive blood culture Patient is a 81-year-old female with a past medical history significant for COPD hypertension hyperlipidemia presenting to ER for evaluation of increasing shortness of breath that apparently has been getting worse for the last 1 week before presentation hospital, patient chest x-ray with cardiomegaly and patchy right greater than left infiltrate concerning for possible pneumonia On today's evaluation that is 09/24/2022, the patient remains to be afebrile, the patient is currently breathing comfortably and is currently on 13 L high flow oxygen, patient denies having any chest pain no worsening cough or sputum production, the patient denies nausea no vomiting no abdominal pain or diarrhea Objective - Vital Signs Vital signs: Vital Signs Temp 97.6 F 09/24/22 08:22 Pulse 80 09/24/22 09:22 Resp 18 09/24/22 08:22 BP 114/75 09/24/22 08:22 Pulse Ox 96 09/24/22 08:47 FiO2 35 09/24/22 08:47 Intake & Output 09/23/22 09/24/22 09/24/22 18:59 06:59 18:59 Intake Total 450 440 Output Total 3 Balance 447 440 Intake: Intake, IV Titration 100 440 Amount Piperacillin-Tazobactam 3 100 200 .375 gm In Sodium Chloride 0.9% 100 ml @ 25 mls/hr IVPB Q8HR [facility] Rx# :[id number] Sodium Chloride 0.9% 1, 240 000 ml @ 20 mls/hr IV . Q24H [facility] Rx#:[id number] Oral 350 Output: Stool 3 Other: # Voids 4 - Exam GENERAL DESCRIPTION: An elderly female lying in bed in no distress RESPIRATORY SYSTEM: Unlabored breathing , decreased intensity of breath sounds, no wheeze HEART: S1 S2 regular rate and rhythm , ABDOMEN: Soft , no tenderness EXTREMITIES: No edema feet - Labs CBC & Chem 7: 09/24/22 03:34 09/24/22 03:34 Labs: Abnormal Lab Results - Last 24 Hours (Table) 09/23/22 09/23/22 09/24/22 Range/Units 07:22 17:23 03:34 WBC 17.6 H (3.8-10.6) k/uL RBC 3.66 L (3.80-5.40) m/uL Plt Count 506 H (150-450) k/uL Neutrophils # 16.0 H (1.3-7.7) k/uL Lymphocytes # 0.5 L (1.0-4.8) k/uL Potassium (3.5-5.5) mmol/L Carbon Dioxide (20.0-27.5) mmol/L BUN/Creatinine Ratio (12.00-20.00) Ratio Glucose (70-110) mg/dL POC Glucose (mg/dL) 193 H (70-110) mg/dL Hemoglobin A1c 6.2 H (0.0-6.0) % Total Protein (6.2-8.2) g/dL Albumin (3.8-4.9) g/dL Albumin/Globulin Ratio (1.60-3.17) g/dL 09/24/22 09/24/22 09/24/22 Range/Units 03:34 06:11 10:50 WBC (3.8-10.6) k/uL RBC (3.80-5.40) m/uL Plt Count (150-450) k/uL Neutrophils # (1.3-7.7) k/uL Lymphocytes # (1.0-4.8) k/uL Potassium 3.2 L (3.5-5.5) mmol/L Carbon Dioxide 28.4 H (20.0-27.5) mmol/L BUN/Creatinine Ratio 27.00 H (12.00-20.00) Ratio Glucose 172 H (70-110) mg/dL POC Glucose (mg/dL) 153 H 224 H (70-110) mg/dL Hemoglobin A1c (0.0-6.0) % Total Protein 5.7 L (6.2-8.2) g/dL Albumin 3.2 L (3.8-4.9) g/dL Albumin/Globulin Ratio 1.28 L (1.60-3.17) g/dL Microbiology - Last 24 Hours (Table) 09/22/22 15:10 Blood Culture Gram Stain - Preliminary Blood Blood Culture - Preliminary Coagulase Negative Staph 09/23/22 08:00 Gram Stain - Preliminary Sputum Sputum Culture - Preliminary 09/22/22 14:55 Blood Culture - Preliminary Blood No Growth after 24 hours 09/22/22 14:55 Blood Culture Gram Stain - Preliminary Blood Blood Culture - Preliminary Staphylococcus epidermidis 09/22/22 15:10 Blood Culture - Final Blood Assessment and Plan (1) Pneumonia Current Visit: Yes Status: Acute Code(s): J18.9 - PNEUMONIA, UNSPECIFIED ORGANISM SNOMED Code(s): 592954912 Plan: 1patient is in the hospital with increasing shortness of breath which is likely multifactorial in this patient who do have a history of COPD patient did have evidence of patchy opacities on the right side concerning for possible pneumonia with COPD exacerbation. 2 sputum for Gram stain and culture has been collected and results are currently pending 3patient did have elevated CRP and pro-calcitonin level mildly elevated at 0.15 4-patient positive blood culture with staph epi likely skin contamination vancomycin has been discontinued 5patient seemed to have shown clinical improvement and well continue with the Zosyn 3.375 g every 8 hours, while waiting for culture finalized Daughter at the bedside questions were answered Time with Patient: Less than 30
[2022-09-24 16:52] LABS: Glucose,Whole Blood 124 mg/dL (70-110)
[2022-09-24] MEDS ORDERED: POTASSIUM CHLORIDE ER 20 MEQ TAB.ER PO STA (19:38)
[2022-09-24 20:24] LABS: Glucose,Whole Blood 308 mg/dL (70-110)
[2022-09-24] MEDS: SODIUM CHLORIDE 0.9% 1,000 ML IV SCH (21:35)
[2022-09-24] MEDS ORDERED: MELATONIN 5 MG TABLET PO PRN (21:36)
--- NOTE | 2022-09-25 02:43 | PN ---
PROGRESS NOTE DATE OF SERVICE: 09/24/2022 SUBJECTIVE: This 81-year-old woman was admitted with COPD exacerbation, bilateral pneumonia, is being closely monitored. Patient is feeling slightly better. No chest pain, no palpitations. Dr. Wright is following the patient closely. Chest x-rays are reviewed. OBJECTIVE: VITAL SIGNS: Pulse is 78, blood pressure is 140/70, and respirations 18. HEENT: Conjunctivae normal. NECK: No jugular venous distention. CARDIOVASCULAR: S1 and S2. RESPIRATORY: Breath sounds diminished at the bases, few scattered rhonchi and crackles. ABDOMEN: Soft. NERVOUS SYSTEM: No focal deficits. LABORATORY DATA: Reviewed. ASSESSMENT: 1. Chronic obstructive pulmonary disease acute exacerbation. 2. Bilateral pneumonia, possibly gram-negative. 3. Gram-positive cocci in the blood culture with possible sepsis. 4. Rule out congestive heart failure. 5. Hyponatremia. 6. Continued ongoing nicotine dependence. 7. Multiple medical issues. RECOMMENDATIONS: Recommended to continue current medications and continue symptomatic treatment. Otherwise, the patient had Staph epi grown from the culture. ID was also consulted. Guarded prognosis. Further recommendations to follow. MMODL / IJN: [id number] /
[2022-09-25] MEDS: methylPREDNISolone SOD SUCCI 125 MG/2 ML VIAL IV SCH ×4 (05:52→23:52)
[2022-09-25 06:08] LABS: Glucose,Whole Blood 197 mg/dL (70-110)
[2022-09-25] MEDS: INSULIN ASPART (NovoLOG) 100 UNIT/ML VIAL SQ SCH ×4 (06:41→20:09)
[2022-09-25] MEDS: PANTOPRAZOLE 40 MG TABLET PO SCH (06:41)
[2022-09-25 07:07] LABS: Basophils % (A) 0 %; Eosinophils % (A) 0 %; HCT 36.6 % (34.0-46.0); HGB 12.3 gm/dL (11.4-16.0); Lymphocytes # (A) 0.4 k/uL (1.0-4.8); Lymphocytes % (A) 3 %; MCH 32.7 pg (25.0-35.0); MCHC 33.6 g/dL (31.0-37.0); MCV 97.4 fL (80.0-100.0); Mean Platelet Volume 7.3; Monocytes # (A) 0.4 k/uL (0-1.0); Monocytes % (A) 3 %; Neutrophils # (A) 11.8 k/uL (1.3-7.7); Neutrophils % (A) 92 %; Platelet Count 493 k/uL (150-450); RBC 3.76 m/uL (3.80-5.40); RDW 12.9 % (11.5-15.5); WBC 12.8 k/uL (3.8-10.6)
[2022-09-25] MEDS: PIPERACILLIN-TAZOBACTAM 3.375 GM in SODIUM CHLORIDE 0.9% 100 ML IVPB SCH ×3 (07:58→23:52)
[2022-09-25] MEDS: HEPARIN SODIUM,PORCINE/PF 5,000 UNIT/0.5 ML SYRINGE SQ SCH ×2 (07:58→22:17)
[2022-09-25] MEDS: NICOTINE 14MG/24HR PATCH TRANSDERM SCH (07:59)
[2022-09-25] MEDS: IPRATROPIUM-ALBUTEROL 3 ML NEB INHALATION SCH ×4 (09:10→21:06)
[2022-09-25] MEDS: BUDESONIDE 1 MG/2 ML NEBU INHALATION SCH ×2 (09:10→21:06)
[2022-09-25] MEDS: FORMOTEROL FUMARATE 20 MCG/2 ML NEBU INHALATION SCH ×2 (09:10→21:06)
[2022-09-25 09:12] LABS: African American GFR (CKD) 62.1 (60.0-200.0); Anion Gap 11.2 mmol/L (10.00-18.00); BUN/Creat Ratio 29.3 Ratio (12.00-20.00); Blood Urea Nitrogen 29.3 mg/dL (9.0-27.0); Calcium 9.3 mg/dL (8.7-10.3); Carbon Dioxide 30.8 mmol/L (20.0-27.5); Non-African American GFR(CKD) 53.5 (60.0-200.0)
[2022-09-25] MEDS: FUROSEMIDE 10 MG/ML 2 ML VIAL IV SCH ×2 (10:47→22:20)
[2022-09-25 11:31] LABS: Glucose,Whole Blood 172 mg/dL (70-110)
--- NOTE | 2022-09-25 14:23 | P.PN ---
Subjective Progress Note Date: 09/25/22 Principal diagnosis: COPD exacerbation This is a pleasant 81-year-old female patient who has a history of chronic obstructive pulmonary disease maintained on Anoro, chronic and ongoing tobacco dependence, hypertension, hyperlipidemia. She has a 1 week history of increasing shortness of breath, poor appetite due to food tasting poorly, dyspnea on exertion, cough and congestion. She is vaccinated and boosted against the saunders virus. No recent sick contacts. No history of recurrent pneumonias. She presented here to the emergency room today. Chest x-ray reveals evidence of cardiomegaly and COPD. There is diffuse interstitial changes and developing patchy opacities right greater than left. Possible underlying congestive heart failure versus pneumonia. White count 11.3. Hemoglobin 12.4. Platelets 394. Sodium 132. Potassium 4.1. Chloride 98. BUN 13. Creatinine 0.54. Glucose 1:15. ProBNP 630. Influenza screen negative. RSV screen negative. COVID-19 screen negative. She is seen in the emergency department. Currently sitting up in a stretcher. Awake and alert in no acute distress. She's afebrile. Hemodynamically stable. Maintain O2 saturations in the 90s on 4 L/m per nasal cannula. She does have a loose nonproductive cough. She's been initiated on bronchodilators, antibiotics in the form of Zosyn, normal saline at 100 ML's per hour. Reevaluated today on 09/23/22, patient is feeling better, however she remains in the ER waiting for a bed on the floor. Remains on oxygen presently on 15 L high flow nasal cannula, patient is clinically feeling better, her O2 sats is 96%. Hemoglobin is 11.8 WBC count is also 11.8 chest x-ray showed COPD, cardiomegaly, interstitial changes difficult to tell how much of it is really related to vascular congestion and how much of that is really true pneumonia. She has patchy right greater than left basilar opacities, again I still suspect there is a component of heart failure her pro calcitonin level is slightly elevated, underlying pneumonia is not entirely ruled out patient had negative screening for influenza A and influenza B RSV and COVID-19 infection. Patient remains empirically on antibiotics, she is also on diuretics which I have started today. She did receive a dose of Lasix yesterday. The patient is seen today 09/24/2022 in follow-up on the regular medical floor. She is currently resting comfortably in bed. Awake and alert in no acute distress. She is utilizing a Ventimask at 35% FiO2. Her pro calcitonin was 0.15. Chest x-ray revealing some evidence of congestive heart failure. She is on Lasix 20 mg IV every 12 hours. No accurate I&O. Chest x-ray is revealing im proving right basilar airspace opacities with persistent probable atelectasis. Evidence of COPD. NicoDerm patch in place. She is afebrile. Hemodynamically stable. Remains on antibiotics in the form of Zosyn. I'm evaluating this patient on 09/25/2022 on a regular medical floor. She appears to be comfortable sitting up in bed eating lunch. She has been using a Ventimask at 35% FiO2. She does not have home O2. Her SpO2 at rest on room air is 87%, which improves to 92% on 2 L nasal cannula. patient denies: shortness of breath, cough, fever, chest pain. no new chest x-ray today. Most recent chest x-ray from 09/24/2022 showed improved right basilar airspace opacities with persistent atelectasis and COPD changes. CBC from today shows a WBC count of 13, hemoglobin 12.3,hematocrit 36.6, platelets of 493,000.A procalcitonin level from 09/22/2022 was only mildly elevated at 0.15. sputum culture from 09/23 shows no growth at this time, and repeat blood cultures from 09/24 show no growth at 24 hours. she remains afebrile. she is maintained on empiric Zosyn. her BMP from 09/25/2022 shows a sodium of 142, potassium 4, chloride 100, serum CO2 31, BUN 29, creatinine 1, glucose 161. patient continues to receive Lasix twice a day. Her fluid balance does not seem to be accurately recorded. vital signs remain stable. Objective - Vital Signs Vital signs: Vital Signs Temp 98.1 F 09/25/22 08:00 Pulse 70 09/25/22 12:48 Resp 19 09/25/22 08:00 BP 117/79 09/25/22 08:00 Pulse Ox 88 L 09/25/22 12:55 FiO2 35 09/25/22 09:15 Intake & Output 09/24/22 09/25/22 09/25/22 18:59 06:59 18:59 Intake Total 200 Balance 200 Intake: Intake, IV Titration 200 Amount Piperacillin-Tazobactam 3 200 .375 gm In Sodium Chloride 0.9% 100 ml @ 25 mls/hr IVPB Q8HR [facility] Rx# :[id number] Other: Voiding Method Toilet # Voids 3 1 - Exam GENERAL EXAM: 81-year-old female in no distress on 35% FiO2 via Ventimask HEAD: Normocephalic. EYES: Normal reaction of pupils, equal size. NOSE: Clear with pink turbinates. THROAT: No erythema or exudates. NECK: No masses, no JVD. CHEST: No chest wall deformity. LUNGS: scattered crackles at the bases bilaterally CVS: S1 and S2 normal with no audible murmur, regular rhythm. ABDOMEN: No hepatosplenomegaly, normal bowel sounds, no guarding or rigidity. CENTRAL NERVOUS SYSTEM: Alert and oriented 3 no gross focal deficit EXTREMITIES: No clubbing edema or cyanosis. 1 - Labs CBC & Chem 7: 09/25/22 06:30 09/25/22 06:30 Labs: Abnormal Lab Results - Last 24 Hours (Table) 09/24/22 09/24/22 09/25/22 Range/Units 16:50 20:24 06:07 WBC (3.8-10.6) k/uL RBC (3.80-5.40) m/uL Plt Count (150-450) k/uL Neutrophils # (1.3-7.7) k/uL Lymphocytes # (1.0-4.8) k/uL Carbon Dioxide (20.0-27.5) mmol/L BUN (9.0-27.0) mg/dL Est GFR (CKD-EPI)NonAf (60.0-200.0) BUN/Creatinine Ratio (12.00-20.00) Ratio Glucose (70-110) mg/dL POC Glucose (mg/dL) 124 H 308 H 197 H (70-110) mg/dL 09/25/22 09/25/22 09/25/22 Range/Units 06:30 06:30 11:30 WBC 12.8 H (3.8-10.6) k/uL RBC 3.76 L (3.80-5.40) m/uL Plt Count 493 H (150-450) k/uL Neutrophils # 11.8 H (1.3-7.7) k/uL Lymphocytes # 0.4 L (1.0-4.8) k/uL Carbon Dioxide 30.8 H (20.0-27.5) mmol/L BUN 29.3 H (9.0-27.0) mg/dL Est GFR (CKD-EPI)NonAf 53.5 L (60.0-200.0) BUN/Creatinine Ratio 29.30 H (12.00-20.00) Ratio Glucose 161 H (70-110) mg/dL POC Glucose (mg/dL) 172 H (70-110) mg/dL Microbiology - Last 24 Hours (Table) 09/22/22 15:10 Blood Culture Gram Stain - Final Blood Blood Culture - Final Staphylococcus epidermidis 09/22/22 14:55 Blood Culture Gram Stain - Final Blood Blood Culture - Final Staphylococcus epidermidis 09/23/22 08:00 Gram Stain - Final Sputum Sputum Culture - Final 09/24/22 03:34 Blood Culture - Preliminary Blood No Growth after 24 hours 09/22/22 14:55 Blood Culture - Preliminary Blood No Growth after 48 hours Assessment and Plan Assessment: Acute hypoxemic respiratory failure secondary to suspected systolic versus diastolic congestive heart failure, possible community-acquired pneumonia. BNP 630. Pro-calcitonin 0.15. Currently on Zosyn Acute exacerbation of chronic obstructive pulmonary disease secondary to above Chronic and ongoing tobacco dependence of greater than 50 years Hypertension Hyperlipidemia Plan: The patient was seen and evaluated Chest x-ray, labs and medications reviewed continue DuoNeb inhalation, Pulmicort inhalation, Perforomist inhalation. continue IV Solu-Medrol continue empiric Zosyn Continue Lasix twice a day Titrate the FiO2 as tolerated May need home O2. Again educated regarding the importance of complete smoking cessation anticipate discharge in the next 24-48 hours. We will continue to follow I have personally seen and examined the patient, performed the documentation and the assessment and plan as written. Number of minutes spent on the visit: [ 10]. Time with Patient: Less than 30
--- NOTE | 2022-09-25 15:50 | P.PN ---
Subjective Progress Note Date: 09/25/22 Principal diagnosis: Possible pneumonia and positive blood culture Patient is a 81-year-old female with a past medical history significant for COPD hypertension hyperlipidemia presenting to ER for evaluation of increasing shortness of breath that apparently has been getting worse for the last 1 week before presentation hospital, patient chest x-ray with cardiomegaly and patchy right greater than left infiltrate concerning for possible pneumonia On today's evaluation that is 09/25/2022, the patient continues to be afebrile, the patient is breathing comfortably, patient denies chest pain , the patient cough is decreased intensity not bringing up any sputum, the patient denies nausea no vomiting no abdominal pain or diarrhea Objective - Vital Signs Vital signs: Vital Signs Temp 98.1 F 09/25/22 08:00 Pulse 70 09/25/22 12:48 Resp 19 09/25/22 08:00 BP 117/79 09/25/22 08:00 Pulse Ox 98 09/25/22 09:15 FiO2 35 09/25/22 09:15 Intake & Output 09/24/22 09/25/22 09/25/22 18:59 06:59 18:59 Intake Total 200 Balance 200 Intake: Intake, IV Titration 200 Amount Piperacillin-Tazobactam 3 200 .375 gm In Sodium Chloride 0.9% 100 ml @ 25 mls/hr IVPB Q8HR [facility] Rx# :[id number] Other: Voiding Method Toilet # Voids 3 1 - Exam GENERAL DESCRIPTION: An elderly female lying in bed in no distress RESPIRATORY SYSTEM: Unlabored breathing , decreased intensity of breath sounds, no wheeze HEART: S1 S2 regular rate and rhythm , ABDOMEN: Soft , no tenderness EXTREMITIES: No edema feet - Labs CBC & Chem 7: 09/25/22 06:30 09/25/22 06:30 Labs: Abnormal Lab Results - Last 24 Hours (Table) 09/24/22 09/24/22 09/25/22 Range/Units 16:50 20:24 06:07 WBC (3.8-10.6) k/uL RBC (3.80-5.40) m/uL Plt Count (150-450) k/uL Neutrophils # (1.3-7.7) k/uL Lymphocytes # (1.0-4.8) k/uL Carbon Dioxide (20.0-27.5) mmol/L BUN (9.0-27.0) mg/dL Est GFR (CKD-EPI)NonAf (60.0-200.0) BUN/Creatinine Ratio (12.00-20.00) Ratio Glucose (70-110) mg/dL POC Glucose (mg/dL) 124 H 308 H 197 H (70-110) mg/dL 09/25/22 09/25/22 09/25/22 Range/Units 06:30 06:30 11:30 WBC 12.8 H (3.8-10.6) k/uL RBC 3.76 L (3.80-5.40) m/uL Plt Count 493 H (150-450) k/uL Neutrophils # 11.8 H (1.3-7.7) k/uL Lymphocytes # 0.4 L (1.0-4.8) k/uL Carbon Dioxide 30.8 H (20.0-27.5) mmol/L BUN 29.3 H (9.0-27.0) mg/dL Est GFR (CKD-EPI)NonAf 53.5 L (60.0-200.0) BUN/Creatinine Ratio 29.30 H (12.00-20.00) Ratio Glucose 161 H (70-110) mg/dL POC Glucose (mg/dL) 172 H (70-110) mg/dL Microbiology - Last 24 Hours (Table) 09/23/22 08:00 Gram Stain - Final Sputum Sputum Culture - Final 09/24/22 03:34 Blood Culture - Preliminary Blood No Growth after 24 hours 09/22/22 14:55 Blood Culture - Preliminary Blood No Growth after 48 hours 09/22/22 15:10 Blood Culture Gram Stain - Preliminary Blood Blood Culture - Preliminary Coagulase Negative Staph Assessment and Plan (1) Pneumonia Current Visit: Yes Status: Acute Code(s): J18.9 - PNEUMONIA, UNSPECIFIED ORGANISM SNOMED Code(s): 711171344 Plan: 1patient is in the hospital with increasing shortness of breath which is likely multifactorial in this patient who do have a history of COPD patient did have evidence of patchy opacities on the right side concerning for possible pneumonia with COPD exacerbation. 2 sputum for Gram stain and culture has been usual respiratory chapito 3patient did have elevated CRP and pro-calcitonin level mildly elevated at 0.15 4-patient positive blood culture with staph epi likely skin contamination vancomycin has been discontinued 5patient seemed to have shown clinical improvement patient to continue Zosyn however we'll transition to oral antibiotics on discharge
[2022-09-25] MEDS: SODIUM CHLORIDE 0.9% 1,000 ML IV SCH (15:53)
[2022-09-25 16:23] LABS: Glucose,Whole Blood 319 mg/dL (70-110)
[2022-09-25 19:45] LABS: Glucose,Whole Blood 61 mg/dL (70-110)
[2022-09-25 20:35] LABS: Glucose,Whole Blood 87 mg/dL (70-110)
--- NOTE | 2022-09-26 03:02 | PN ---
PROGRESS NOTE DATE OF SERVICE: 09/25/2022 SUBJECTIVE: This is a 81-year-old woman who was admitted with COPD acute exacerbation, also bilateral pneumonia. The patient is on Venti mask at 10 L oxygen. No chest pain. No palpitation. OBJECTIVE: VITAL SIGNS: Pulse is 91, blood pressure 90/60, respirations 17. HEENT: Conjunctivae normal. NECK: No JVD. CARDIOVASCULAR: S1, S2. RESPIRATIONS: Breath sounds diminished at the bases. Bilateral scattered rhonchi. ABDOMEN: Soft. NERVOUS SYSTEM: Nonfocal. LABORATORY DATA: Reviewed. ASSESSMENT: 1. Chronic obstructive pulmonary disease acute exacerbation. 2. Bilateral pneumonia, possibly gram-negative. 3. Staph epidermidis from the blood cultures, possibly contaminant. 4. Hyponatremia. 5. Continue ongoing nicotine dependence. 6. Multiple medical issues. RECOMMENDATIONS: Recommend to continue current medications, symptomatic treatment. Otherwise, continue the antibiotics. Closely follow with Pulmonary and Infectious Disease. Guarded prognosis. Further recommendations to follow. MMODL / IJN: [id number] /
[2022-09-26] MEDS: methylPREDNISolone SOD SUCCI 125 MG/2 ML VIAL IV SCH ×2 (06:14→13:02)
[2022-09-26] MEDS: PANTOPRAZOLE 40 MG TABLET PO SCH (06:24)
[2022-09-26] MEDS: INSULIN ASPART (NovoLOG) 100 UNIT/ML VIAL SQ SCH ×2 (06:33→13:02)
[2022-09-26 06:34] LABS: Glucose,Whole Blood 165 mg/dL (70-110)
[2022-09-26] MEDS: PIPERACILLIN-TAZOBACTAM 3.375 GM in SODIUM CHLORIDE 0.9% 100 ML IVPB SCH (08:28)
[2022-09-26] MEDS: FUROSEMIDE 10 MG/ML 2 ML VIAL IV SCH (08:28)
[2022-09-26] MEDS: HEPARIN SODIUM,PORCINE/PF 5,000 UNIT/0.5 ML SYRINGE SQ SCH (08:29)
[2022-09-26] MEDS: NICOTINE 14MG/24HR PATCH TRANSDERM SCH (08:29)
[2022-09-26] MEDS: BUDESONIDE 1 MG/2 ML NEBU INHALATION SCH (09:57)
[2022-09-26] MEDS: FORMOTEROL FUMARATE 20 MCG/2 ML NEBU INHALATION SCH (09:57)
[2022-09-26] MEDS: IPRATROPIUM-ALBUTEROL 3 ML NEB INHALATION SCH ×2 (09:57→12:24)
[2022-09-26 11:17] LABS: Glucose,Whole Blood 207 mg/dL (70-110)
--- NOTE | 2022-09-26 13:19 | P.EN ---
Patient will require oxygen on discharge at 2 L via nasal cannula to manage COPD
[2022-09-26 13:36] VITALS: BP 112/72; PULSE 93; RESP 16; TEMP 97.7
--- NOTE | 2022-09-26 14:45 | P.PN ---
Subjective Progress Note Date: 09/26/22 Principal diagnosis: Shortness of breath/cough. The patient is seen today 09/24/2022 in follow-up on the regular medical floor. She is currently resting comfortably in bed. Awake and alert in no acute distress. She is utilizing a Ventimask at 35% FiO2. Her pro calcitonin was 0.15. Chest x-ray revealing some evidence of congestive heart failure. She is on Lasix 20 mg IV every 12 hours. No accurate I&O. Chest x-ray is revealing improving right basilar airspace opacities with persistent probable atelectasis. Evidence of COPD. NicoDerm patch in place. She is afebrile. Hemodynamically stable. Remains on antibiotics in the form of Zosyn. I'm evaluating this patient on 09/25/2022 on a regular medical floor. She appears to be comfortable sitting up in bed eating lunch. She has been using a Ventimask at 35% FiO2. She does not have home O2. Her SpO2 at rest on room air is 87%, which improves to 92% on 2 L nasal cannula. patient denies: shortness of breath, cough, fever, chest pain. no new chest x-ray today. Most recent chest x-ray from 09/24/2022 showed improved right basilar airspace opacities with persistent atelectasis and COPD changes. CBC from today shows a WBC count of 13, hemoglobin 12.3,hematocrit 36.6, platelets of 493,000.A procalcitonin l evel from 09/22/2022 was only mildly elevated at 0.15. sputum culture from 09/23 shows no growth at this time, and repeat blood cultures from 09/24 show no growth at 24 hours. she remains afebrile. she is maintained on empiric Zosyn. her BMP from 09/25/2022 shows a sodium of 142, potassium 4, chloride 100, serum CO2 31, BUN 29, creatinine 1, glucose 161. patient continues to receive Lasix twice a day. Her fluid balance does not seem to be accurately recorded. vital signs remain stable. Progress note dated 09/26/2022. The patient is seen today in room 481. The patient's on 2 L. She is hoping to be discharged home soon. She's not receiving any IV fluids. She has been in the hospital for about 4 days. She denies any worsening shortness of breath, cough, wheezing, or phlegm production. Laboratory data from yesterday is reviewed. Nothing back from today. Blood cultures were positive for Staphylococcus epidermidis. Objective - Vital Signs Vital signs: Vital Signs Temp 97.7 F 09/26/22 13:35 Pulse 93 09/26/22 13:35 Resp 16 09/26/22 13:35 BP 112/72 09/26/22 13:35 Pulse Ox 86 L 09/26/22 10:41 FiO2 35 09/25/22 21:05 Intake & Output 09/25/22 09/26/22 09/26/22 18:59 06:59 18:59 Intake Total 120 440 Balance 120 440 Intake: Intake, IV Titration 200 Amount Piperacillin-Tazobactam 3 100 .375 gm In Sodium Chloride 0.9% 100 ml @ 25 mls/hr IVPB Q8HR [facility] Rx# :[id number] Sodium Chloride 0.9% 1, 100 000 ml @ 20 mls/hr IV . Q24H [facility] Rx#:[id number] Oral 120 240 Other: Voiding Method Toilet # Voids 4 - Exam No acute distress, oriented 3. Currently on 2 L. No conversational dyspnea or use of accessory muscles. No audible wheezing. HEENT examination is grossly unremarkable. Neck supple. Full range of motion. No adenopathy thyromegaly or neck vein distention. Cardiovascular examination reveals regular rhythm rate. S1-S2 normal. No S3 or S4. No discernible murmur noted. Heart rate 75 bpm. Lungs reveal mostly clear breath sounds. Scattered rhonchi and wheezes are noted. They are mild in severity. No crackles. Breath sounds equal bilaterally. 2 L saturation is 93%. Abdomen soft bowel sounds are heard. No masses or tenderness. Extremities are intact. No cyanosis clubbing or edema. Skin is without rash or lesion. Neurologic examination is brief but nonfocal. - Labs CBC & Chem 7: 09/25/22 06:30 09/25/22 06:30 Labs: Abnormal Lab Results - Last 24 Hours (Table) 09/25/22 09/25/22 09/26/22 Range/Units 16:22 19:43 06:32 POC Glucose (mg/dL) 319 H 61 L 165 H (70-110) mg/dL 12/28/22 Range/Units 11:16 POC Glucose (mg/dL) 207 H (70-110) mg/dL Microbiology - Last 24 Hours (Table) 09/24/22 03:34 Blood Culture - Preliminary Blood No Growth after 48 hours 09/22/22 14:55 Blood Culture - Preliminary Blood No Growth after 72 hours 09/22/22 15:10 Blood Culture Gram Stain - Final Blood Blood Culture - Final Staphylococcus epidermidis 09/22/22 14:55 Blood Culture Gram Stain - Final Blood Blood Culture - Final Staphylococcus epidermidis 09/23/22 08:00 Gram Stain - Final Sputum Sputum Culture - Final Assessment and Plan Assessment: Acute hypoxemic respiratory failure secondary to suspected systolic versus diastolic congestive heart failure, possible community-acquired pneumonia. Acute exacerbation of chronic obstructive pulmonary disease. Chronic and ongoing tobacco dependence of greater than 50 years. Hypertension. Hyperlipidemia. Plan: Plan dated 09/26/2022. The patient's on 2 L. Saturations are in the low 90s. She remains on appropriate medications including albuterol sulfate, and ipratropium bromide, Pulmicort, formoterol, and IV Solu-Medrol. The patient continues on antibiotics. The patient is being evaluated for possible discharge home in the near future. The patient continues on Lasix, and likely will need home oxygen. Additional recommendations and suggestions are forthcoming. We will continue to follow patient and make recommendations along the way. Time with Patient: Less than 30
--- NOTE | 2022-09-26 15:01 | P.PN ---
Subjective Progress Note Date: 09/26/22 Principal diagnosis: Possible pneumonia and positive blood culture Patient is a 81-year-old female with a past medical history significant for COPD hypertension hyperlipidemia presenting to ER for evaluation of increasing shortness of breath that apparently has been getting worse for the last 1 week before presentation hospital, patient chest x-ray with cardiomegaly and patchy right greater than left infiltrate concerning for possible pneumonia On today's evaluation that is 09/26/2022, the patient remains to be afebrile, the patient is breathing comfortably on the 2 L nasal cannula, patient denies chest pain , the patient cough has decreased intensity and mostly dry in nature, the patient denies nausea no vomiting no abdominal pain or diarrhea Objective - Vital Signs Vital signs: Vital Signs Temp 98.2 F 09/26/22 08:00 Pulse 75 09/26/22 10:14 Resp 19 09/26/22 08:00 BP 142/90 09/26/22 08:00 Pulse Ox 86 L 09/26/22 10:41 FiO2 35 09/25/22 21:05 Intake & Output 09/25/22 09/26/22 09/26/22 18:59 06:59 18:59 Intake Total 120 440 Balance 120 440 Intake: Intake, IV Titration 200 Amount Piperacillin-Tazobactam 3 100 .375 gm In Sodium Chloride 0.9% 100 ml @ 25 mls/hr IVPB Q8HR [facility] Rx# :[id number] Sodium Chloride 0.9% 1, 100 000 ml @ 20 mls/hr IV . Q24H [facility] Rx#:[id number] Oral 120 240 Other: Voiding Method Toilet # Voids 4 - Exam GENERAL DESCRIPTION: An elderly female lying in bed in no distress RESPIRATORY SYSTEM: Unlabored breathing , decreased intensity of breath sounds, no wheeze HEART: S1 S2 regular rate and rhythm , ABDOMEN: Soft , no tenderness EXTREMITIES: No edema feet - Labs CBC & Chem 7: 09/25/22 06:30 09/25/22 06:30 Labs: Abnormal Lab Results - Last 24 Hours (Table) 09/25/22 09/25/22 09/26/22 Range/Units 16:22 19:43 06:32 POC Glucose (mg/dL) 319 H 61 L 165 H (70-110) mg/dL 09/26/22 Range/Units 11:16 POC Glucose (mg/dL) 207 H (70-110) mg/dL Microbiology - Last 24 Hours (Table) 09/24/22 03:34 Blood Culture - Preliminary Blood No Growth after 48 hours 09/22/22 14:55 Blood Culture - Preliminary Blood No Growth after 72 hours 09/22/22 15:10 Blood Culture Gram Stain - Final Blood Blood Culture - Final Staphylococcus epidermidis 09/22/22 14:55 Blood Culture Gram Stain - Final Blood Blood Culture - Final Staphylococcus epidermidis 09/23/22 08:00 Gram Stain - Final Sputum Sputum Culture - Final Assessment and Plan (1) Pneumonia Current Visit: Yes Status: Acute Code(s): J18.9 - PNEUMONIA, UNSPECIFIED ORGANISM SNOMED Code(s): 272259367 Plan: 1patient is in the hospital with increasing shortness of breath which is likely multifactorial in this patient who do have a history of COPD patient did have evidence of patchy opacities on the right side concerning for possible pneumonia with COPD exacerbation. 2 sputum for Gram stain and culture has been usual respiratory chapito 3patient did have elevated CRP and pro-calcitonin level mildly elevated at 0.15 4-patient positive blood culture with staph epi likely skin contamination vancomycin has been discontinued 5patient seemed to have shown clinical improvement patient will finish therapy short course of oral Ceftin on discharge discussed with the D[employer] AND EV[employer]ORATOR OPERATOR for admitting team Time with Patient: Less than 30
--- NOTE | 2022-09-26 21:45 | DS ---
DISCHARGE SUMMARY FINAL DIAGNOSES: 1. Chronic obstructive pulmonary disease acute exacerbation. 2. Bilateral pneumonia, possibly gram-negative. 3. Staph epidermidis from the blood culture, possibly contaminant. 4. Hyponatremia. 5. Continued ongoing nicotine dependence. 6. Multiple medical issues. DISCHARGE DISPOSITION: The patient will be discharged in stable condition with guarded prognosis. HISTORY OF PRESENT ILLNESS: This is a 81-year-old woman with a past medical history of multiple medical problems including COPD acute exacerbation, pneumonia. The patient was seen by Pulmonary and the patient improved significantly. PHYSICAL EXAMINATION: VITAL SIGNS: Stable. CARDIOVASCULAR: S1, S2. RESPIRATIONS: A few scattered rhonchi. The patient will be discharged in stable condition and guarded prognosis. Arrange home O2. Resume the home medications and also, 1. Add DuoNeb q.i.d. and p.r.n. 2. Prednisone taper. 3. Ceftin 500 mg p.o. b.i.d. for 5 days. 4. Habitrol 14 daily. 5. Lasix 20 mg p.o. b.i.d. Followup CBC, BMP with primary physician and follow with Dr. Pacheco as recommended. Once again, the patient will be discharged in stable condition and guarded prognosis. MMODL / IJN: [id number] /
== END 2022-09-26 15:02 | disposition home health service (06) | DRG 177 ==
LOC: EC 11:48 → 4SSUR 13:39
PROVIDERS: ADMIT Hospitalist; ATTEND Hospitalist
DX: J15.6 Pneumonia due to other Gram-negative bacteria (principal); J96.01 Acute respiratory failure with hypoxia; E87.1 Hypo-osmolality and hyponatremia; J44.0 Chronic obstructive pulmonary disease with (acute) lower respiratory infection; J44.1 Chronic obstructive pulmonary disease with (acute) exacerbation; J98.11 Atelectasis; Z20.822 Contact with and (suspected) exposure to COVID-19; E78.5 Hyperlipidemia, unspecified; F17.210 Nicotine dependence, cigarettes, uncomplicated; I10 Essential (primary) hypertension; I11.0 Hypertensive heart disease with heart failure; I50.9 Heart failure, unspecified; Z79.899 Other long term (current) drug therapy
CPT/HCPCS: 36415; 71045; 71046; 80048; 80053; 83036; 83605; 83880; 84145; 85025; 86140; 87040; 87070; 87077; 87186; 87205; 87636; 93005; 94640; 94760; 96365; 96366; 96367; 96372; 96375; 96376; 99291